=== PATIENT | female | born 1990 | race Caucasian/White ===

== ENCOUNTER 2023-10-05 00:17 | Emergency (ER) | payer OTHER ==
[~2023-10-05] VITALS: Ht 167.6 cm; Wt 66.2 kg
[2023-10-05] MEDS ORDERED: IBUPROFEN 400 MG TABLET ONE ×2 (02:08→02:10)
[2023-10-05] MEDS ORDERED: TDAP [DIPH/PERTUSSIS/TET] 0.5 ML VIAL IM ONE ×2 (02:08→02:11)
[2023-10-05] MEDS: IBUPROFEN 400 MG TABLET PO ONE (02:12)
[2023-10-05] MEDS: TDAP [DIPH/PERTUSSIS/TET] 0.5 ML VIAL IM ONE (02:12)
[2023-10-05 02:50] VITALS: BP 123/70; TEMP 98; O2SAT 99
== END 2023-10-05 02:54 | disposition home or self-care (01) ==
LOC: EDUNIT# 00:17 → ER 00:36
DX: S83.92XA Sprain of unspecified site of left knee, initial encounter (principal); W01.0XXA Fall on same level from slipping, tripping and stumbling without subsequent striking against object, initial encounter; Y93.89 Activity, other specified; Y92.89 Other specified places as the place of occurrence of the external cause; Y99.8 Other external cause status
CPT/HCPCS: 73564-TC; 90715

== ENCOUNTER 2024-04-12 00:56 | Emergency (ER) | payer OTHER ==
[~2024-04-12] VITALS: Ht 167.6 cm; Wt 63.5 kg
[2024-04-12 01:11] VITALS: BP 132/84; TEMP 97.9; O2SAT 99
== END 2024-04-12 01:39 | disposition home or self-care (01) ==
LOC: ER 01:11
DX: H57.13 Ocular pain, bilateral (principal); H57.89 Other specified disorders of eye and adnexa; F41.9 Anxiety disorder, unspecified; X58.XXXA Exposure to other specified factors, initial encounter; Y93.89 Activity, other specified; Y92.89 Other specified places as the place of occurrence of the external cause; Y99.8 Other external cause status
CPT/HCPCS: 99283; A4217